=== PATIENT | male | born 1975 | race Two or more races ===

== ENCOUNTER 2024-10-16 04:50 | Emergency (ER) | payer MEDICAID, SELFPAY ==
[2024-10-16 04:53] VITALS: BMI 37.0
[2024-10-16 04:58] VITALS: BP 130/91; PULSE 92; RESP 17; TEMP 37; O2SAT 98
--- NOTE | 2024-10-16 05:16 | EDRME_ITS ---
Rapid Medical Screening Exam [facility] Arrival date/time: 10/16/24 04:50 49M with history of back surgery presents to ED with 2 days of N/V, burning ab pain/cramping, back pain and non-bloody diarrhea after he ate a hot dog. Chief Complaint: Abdominal Pain Vital signs: Vital Signs Temperature 98.6 F 10/16/24 04:58 Pulse Rate 92 10/16/24 04:58 Respiratory Rate 17 10/16/24 04:58 Blood Pressure 130/91 H 10/16/24 04:58 Pulse Oximetry (%) 98 10/16/24 04:58 Oxygen Delivery Method Room Air 10/16/24 04:58
[2024-10-16] MEDS: DICYCLOMINE 10 MG CAPSULE PO (05:44)
[2024-10-16] MEDS: FAMOTIDINE 20 MG TABLET 40 MG PO (05:45)
[2024-10-16 06:33] LABS: Basophils # (Auto) 0.0 Thou/mm3 (0.0-0.2); Basophils % (Auto) 0 % (0-2.5); Eosinophils # (Auto) 0.2 Thou/mm3 (0.0-0.5); Eosinophils % (Auto) 2 % (0-10); Hematocrit 39.6 % (41.0-53.0); Hemoglobin 14.8 g/dL (13.5-16.0); Immature Granulocytes Auto 0.02 Thou/mm3 (0.00-0.00); Lymphocytes # (Auto) 2.0 Thou/mm3 (1.0-4.8); Lymphocytes % (Auto) 21 % (10-50); Mean Corpuscular HGB Conc 37.4 g/dl (31.0-37.0); Mean Corpuscular Hemoglobin 31.8 pg (25.0-35.0); Mean Corpuscular Volume 85 fL (80-100); Monocytes # (Auto) 1.1 Thou/mm3 (0.0-0.8); Monocytes % (Auto) 11 % (0-12); Neutrophils # (Auto) 6.2 Thou/mm3 (1.8-7.7); Neutrophils % (Auto) 65 % (37-80); Nucleated Red Blood Cell # 0.00 Thou/mm3 (0.00-0.00); Nucleated Red Blood Cell % 0 /100 WBC (0); Platelet Count 272 Thou/mm3 (140-440); RDW Standard Deviation 41.9 fL (35.1-43.9); Red Blood Count 4.65 Miln/mm3 (4.50-5.90); White Blood Count 9.5 Thou/mm3 (3.8-10.6)
[2024-10-16 06:36] LABS: Collection Type, Urine Clean Catch
[2024-10-16 06:57] LABS: Bilirubin,Urine Negative (Negative); Blood,Urine Negative (Negative); Clarity,Urine Clear (Clear/Hazy); Color,Urine Yellow (Lt Yel-Yel); Culture Indicated,Urine Not Indicated; Glucose, Urine Negative (Negative); Ketones,Urine Negative (Negative); Leukocyte Esterase,Urine Negative (Negative); Nitrite,Urine Negative (Negative); PH,Urine 6.5 (5.0-7.0); Protein,Urine Negative (Neg - Trace); RBC,Urine 2 /hpf (0-3); Specific Gravity,Urine 1.016 (1.001-1.035); Squamous Epithelial Cell,Urine 1 /hpf (0-5); Urobilinogen,Urine Negative mg/dL (0.0-1.0); WBC,Urine 1 /hpf (0-5)
[2024-10-16 07:02] LABS: Alanine Aminotransferase 78 U/L (10-49); Albumin, Serum 4.3 gm/dL (3.5-5.0); Albumin/Globulin Ratio 1.5 (1.2-2.2); Alkaline Phosphatase 71 U/L (46-116); Anion Gap 8 (7-16); Aspartate Amino Transferase 48 U/L (0-34); BUN/Creatinine Ratio 11 Ratio (12-20); Bilirubin,Total 0.8 mg/dL (0.3-1.2); Blood Urea Nitrogen 10 mg/dL (9-23); Calcium 9.2 mg/dL (8.3-10.6); Calcium (Corrected) 9.2 mg/dL (8.5-10.1); Carbon Dioxide 32.0 mMol/L (20.0-31.0); Chloride 99 mMol/L (98-107); Creatinine (Component) 0.9 mg/dL (0.6-1.3); Estimated Creatinine Clearance 122.2 mL/min (>60); Globulin 2.9 gm/dL (2.3-3.5); Glucose 104 mg/dL (74-106); Lipase 26 U/L (12-53); Osmolality,Calculated 276 (275-295); Potassium 3.3 mMol/L (3.4-5.1); Sodium 139 mMol/L (136-145); Total Protein 7.2 gm/dL (5.7-8.2); eGFR > 60 See Note
[2024-10-16 07:07] LABS: Amphetamine/Methamp Scrn,U Negative (Negative); Barbiturate Screen,Urine Negative (Negative); Benzodiazepines Screen,Urine Negative (Negative); Benzoylecgonine Screen, Ur Negative (Negative); Fentanyl Screen,Urine Negative (Negative); Opiate Screen,Urine Negative (Negative); THC Screen,Urine Negative (Negative)
--- NOTE | 2024-10-16 07:14 | EDNOTE_ITS ---
ED Abdominal Pain RME/HPI General Chief Complaint: Abdominal Pain Stated complaint: ABD PAIN Time seen by provider: 10/16/24 05:54 Arrival date/time: 10/16/24 04:50 49-year-old male with a history of back pain presents to the emergency room with a chief complaint of nausea vomiting diarrhea abdominal cramping x 2 days. Patient states he was at [employer] ate a hot dog and since then has been having the symptoms. Source: patient Mode of arrival: ambulatory Limitations: no limitations RME / HPI RME / HPI narrative: 10/16/24 04:50 49M with history of back surgery presents to ED with 2 days of N/V, burning ab pain/cramping, back pain and non-bloody diarrhea after he ate a hot dog. Related Data Home Medications ?Medication ?Instructions ?Recorded ?Confirmed omeprazole 40 mg capsule,delayed 40 mg PO QDAY 9 07/26/22 release clotrimazole 1 % topical cream 1 applic topical QDAY 0 07/26/22 07/26/22 Previous Rx's ?Medication ?Instructions ?Recorded hydrocodone 5 mg-acetaminophen 325 1 tab PO TID PRN pa in #20 tabs 02/11/20 mg tablet (Madison) Held on 07/26/22. Instructions: Resume on 07/27/22. ibuprofen 600 mg tablet 600 mg PO TID PRN pain #30 t abs 06/19/23 lidocaine 5 % topical patch 1 patch topical QDAY #15 e a 06/19/23 (Lidoderm) loperamide 2 mg capsule 2 mg PO Q6H PRN loose stool #14 10/16/24 (Anti-Diarrheal (loperamide)) caps ondansetron 4 mg disintegrating 4 mg PO Q8H PRN nausea and 10/16/24 tablet vomiting #14 tabs Allergies Allergy/AdvReac Type Severity Reaction Status Date / Time caramel Allergy Severe SWEATING Verified 10/16/24 04:55 cocoa Allergy Severe SWEATING Verified 10/16/24 04:55 Review of Systems Review of Systems Systems Reviewed: All systems reviewed, normal except as documented Constitutional Constitutional: Reports system reviewed and no additional complaints, except as documented, Denies fatigue, Denies fever(s), Denies headache(s) and Denies weakness Eyes Eyes: Reports system reviewed and no additional complaints, except as documented, Denies blurry vision and Denies change in vision ENT Ears, Nose, Mouth, and Throat: Reports system reviewed and no additional complaints, except as documented, Denies otalgia, Denies headache(s), Denies nasal congestion, Denies throat swelling and Denies vertigo Cardiovascular Cardiovascular: Reports system reviewed and no additional complaints, except as documented, Denies chest pain, Denies dyspnea and Denies dyspnea on exertion Respiratory Respiratory: Reports system reviewed and no additional complaints, except as documented, Denies chest congestion, Denies cough, Denies dyspnea, Denies dyspnea on exertion and Denies wheezing Gastrointestinal Gastrointestinal: Reports system reviewed and no additional complaints, except as documented, Reports abdominal pain, Reports cramping, Reports diarrhea, Reports nausea and Reports vomiting Genitourinary Genitourinary: Reports system reviewed and no additional complaints, except as documented, Denies dysuria and Denies hematuria Musculoskeletal Musculoskeletal: Reports system reviewed and no additional complaints, except as documented and Denies back pain Integumentary/Breasts Skin/Breast: Reports system reviewed and no additional complaints, except as documented and Denies wounds Neurologic Neurologic: Reports system reviewed and no additional complaints, except as documented, Denies confusion, Denies headache(s), Denies lack of coordination, Denies vertigo and Denies weakness Psychiatric Psychiatric: Reports system reviewed and no additional complaints, except as documented, Denies anxiety, Denies confusion, Denies depression, Denies paranoia, Denies suicidal ideation and Denies tactile hallucinations Endocrine Endocrine: Reports system reviewed and no additional complaints, except as documented and Denies fatigue Hematologic/Lymphatic Hematologic/Lymphatic: Reports system reviewed and no additional complaints, except as documented and Denies lymphadenopathy Allergic/Immunologic Allergic/Immunologic: Reports system reviewed and no additional complaints, except as documented, Denies throat swelling, Denies urticaria and Denies wheezing Past Medical History Past Medical History NEUROLOGIC: Negative Neurological Disorders or Seizures CARDIAC: Negative Cardiac Disorders or Congestive Heart Failure RESPIRATORY: Negative Chronic Obstructive Pulmonary Disease (COPD) or Asthma GASTROINTESTINAL: Positive Gastrointestinal Disorders and Gastroesophageal Reflux Disease GENITOURINARY: Positive Genitourinary Disorders and Kidney Stones; Negative Renal Disease MUSCULOSKELETAL: Positive Musculoskeletal Disorders ENDOCRINE: Negative Endocrine Disorders, Diabetes Mellitus Type 1 or Diabetes Mellitus Type 2 HEMATOLOGIC: Negative Blood Disorders or Sickle Cell Disease PSYCHO/SOCIAL: Positive Anxiety OTHER HISTORY: Positive Chicken Pox; Negative Autoimmune Disease, Blood Transfusions, Anesthesia Reactions or Cancer Surgical History SURGICAL: Positive Abdominal Surgery and Open Reduction Internal Fixation (left hand [id number]) Social History SMOKING STATUS: Never smoker SUBSTANCE USE: does not use ED Exam General Limitations: Present no limitations General appearance: Present alert and in no apparent distress Head Head exam: Present atraumatic Eye Eye exam: Present normal appearance, PERRL and EOMI ENT ENT exam: Present normal exam, normal oropharynx and mucous membranes moist Neck Neck exam: Present normal inspection, full ROM and trachea midline Chest Chest inspection: Present normal inspection and symmetric chest wall rise Respiratory Respiratory exam: Present normal lung sounds bilaterally Cardiovascular Cardiovascular exam: Present regular rate, normal rhythm and normal heart sounds Abdominal Exam Abdominal exam: Present soft and normal bowel sounds; Absent distention, tenderness, guarding, Meadows's sign or tenderness at McBurney's Point Abdominal tenderness: Present epigastrium and moderate; Absent RUQ or RLQ Extremities Exam Extremities exam: Present normal inspection and full ROM Back Exam Back exam: Present normal inspection and full ROM Neurological Exam Neurological exam: Present alert, oriented X3 and CN II-XII intact Psychiatric Psychiatric exam: Present normal affect and normal mood Skin Skin exam: Present warm, dry, intact and normal color Course Quality Measures none Orders Category Date Time Status CBC Stat Lab 10/16/24 06:15 Completed CMP [Comprehensive Metabolic Panel] Stat Lab 10/16/24 06:15 Completed Drug Screen,Urine Stat Lab 10/16/24 06:30 Completed Lipase Stat Lab 10/16/24 06:15 Completed Urinalysis, C/S if Indicated Stat Lab 10/16/24 06:30 Completed Dicyclomine [Bentyl] Med 10/16/24 05:16 Discontinued 10 mg PO X1 ONE Famotidine [Pepcid] Med 10/16/24 05:16 Discontinued 40 mg PO X1 ONE Ketorolac Inj [Toradol Inj] Med 10/16/24 07:22 Discontinued 30 mg IM X1 ONE Potassium Chloride [K-Dur] Med 10/16/24 07:22 Discontinued 40 meq PO X1 ONE Vital Signs Vital signs: Vital Signs Temperature 98.6 F 10/16/24 04:58 Pulse Rate 92 10/16/24 04:58 Respiratory Rate 17 10/16/24 04:58 Blood Pressure 130/91 H 10/16/24 04:58 Pulse Oximetry (%) 98 10/16/24 04:58 Oxygen Delivery Method Room Air 10/16/24 04:58 O2 saturation 98% within normal limits Abdominal Pain MDM MDM Narrative MDM Narrative:: 49-year-old male with a history of back pain presents to the emergency room with a chief complaint of nausea vomiting diarrhea abdominal cramping x 2 days. Patient states he was at [employer] ate a hot dog and since then has been having the symptoms. Patient is hemodynamically stable and in no apparent distress. During my reevaluation the patient has some mild tenderness to the epigastric area of his abdomen. There is no right lower quadrant or right upper quadrant abdominal tenderness. The patient has a negative Meadows sign and there is no t enderness to McBurney's point. Patient denies any fevers. Patient states he believes the cause of his symptoms is a hot dog that was undercooked. Patient's potassium was slightly decreased so oral potassium was given as well as medication for his pain due to his back problems. CBC CMP lipase were all within normal limits. Patient was discharged and educated to follow-up with primary care provider in the next 24 to 48 hours and return to the emergency room for any evidence of worsening signs or symptoms Patient data External records reviewed:: [facility] previous records Clinical information provided by:: patient Social determinants that could affect healthcare access:: none Patient has the following chronic illnesses:: No chronic illness How is presenting disease/condition affected by chronic disease/condition?: no chronic disease Evaluation data The following diagnostics were reviewed and interpreted by me:: lab results and radiology exam(s) Lab and/or radiology exams considered but not ordered:: Labs and radiology exams considered in order Interpretation Summary: N/A Medications / Prescriptions Medications or Prescriptions considered but not ordered:: Medication given Medication administrations:: Medication Administration History Discontinued Medications Dicyclomine HCl (Dicyclomine 10 Mg Capsule) 10 mg PO X1 ONE Stop: 10/16/24 05:17 Last Admin: 10/16/24 05:44 Dose: 10 mg Documented By: CVL Famotidine (Famotidine 20 Mg Tablet) 40 mg PO X1 ONE Stop: 10/16/24 05:17 Last Admin: 10/16/24 05:45 Dose: 40 mg Documented By: CVL Ketorolac Tromethamine (Ketorolac Inj 60 Mg/2 Ml Vial) 30 mg IM X1 ONE Stop: 10/16/24 07:23 Last Admin: 10/16/24 07:37 Dose: 30 mg Documented By: EF Potassium Chloride (Potassium Chloride 20 Meq Tabcr) 40 meq PO X1 ONE Stop: 10/16/24 07:23 Last Admin: 10/16/24 07:38 Dose: 40 meq Documented By: EF Medication given Consultations Consultation(s) initiated? (list below): No Diagnosis Differential diagnosis abdominal pain: abdominal pain, acute appendicitis, constipation, diverticulitis and gastroenteritis Most likely diagnosis given after review of the tests above:: Gastroenteritis Admission Indicated Admission indicated?: not indicated Admission Request Was there a request for admission?: No Disposition Plan Disposition Plan: Discharge Discharge Attestation Discharge Attestation: The patient and all family members were given an opportunity to ask questions and understood the discharge instructions. Discharge instructions specifically effects, indications for sooner follow up or return to the emergency department, and the expected course of current diagnosis. Patient condition: Stable Discharge Plan Plan Patient Disposition: HOME (Self Care) Prescriptions/Referrals Prescriptions/Med Rec: New loperamide [Anti-Diarrheal (loperamide)] 2 mg capsule 2 mg PO Q6H PRN (Reason: loose stool) Qty: 14 0RF ondansetron 4 mg tablet,disintegrating 4 mg PO Q8H PRN (Reason: nausea and vomiting) Qty: 14 0RF No Action omeprazole 40 mg capsule,delayed release(DR/EC) 40 mg PO QDAY hydrocodone-acetaminophen [[place]ison] 5-325 mg tablet 1 tab PO TID MDD 3 PRN (Reason: pain) Qty: 20 0RF clotrimazole 1 % cream 1 applic TOPICAL QDAY Patient Comments: APPLY TO AFFECTED AREA TWICE A DAY lidocaine [Lidoderm] 5 % adhesive patch,medicated 1 patch topical QDAY Qty: 15 0RF Rx Instructions: leave on most painful area for up to 12 hrs ibuprofen 600 mg tablet 600 mg PO TID PRN (Reason: pain) Qty: 30 0RF Referrals: Tian Caputo MD [Primary Care Provider] - In 1 week Problem List Clinical Impression: Gastroenteritis Patient/Caregiver Discharge Instructions Education Materials: How the Colon Works, Understanding Colitis, ED Gastroenteritis, Noninfectious Additional Instructions: Please follow-up with your primary care provider in the next 24 to 48 hours Medication was sent to your pharmacy to help you with your symptoms. Please pick it up and take it as indicated For any evidence of worsening signs or symptoms return to the emergency room immediately Print Language: Northern Irish Stand Alone Forms: Jacinda Award Info., Work/School Release, Patient Portal Info Letter PA/NON LICENSED OPERATOR Supervising Physician PA/NON LICENSED OPERATOR Supervising Physician: Dr. Noel
[2024-10-16] MEDS: KETOROLAC INJ 60 MG/2 ML VIAL 30 MG IM (07:37)
[2024-10-16 07:39] VITALS: BP 132/93; PULSE 79; RESP 18; TEMP 37.1; O2SAT 97
== END 2024-10-16 07:43 | disposition home or self-care (01) ==
PROVIDERS: Physician Assistant; Emergency Provider Emergency Medicine; PCP Family Medicine
DX: K52.9 Noninfective gastroenteritis and colitis, unspecified (principal)
CPT/HCPCS: 36415; 80053; 80307; 81001; 83690; 85025; 96372; 99283; J1885; A9270